=== PATIENT | female | born 1960 | race Caucasian/White ===

== ENCOUNTER 2024-07-09 15:40 | Outpatient (CLI) | payer MEDICAID ==
[~2024-07-09] VITALS: Ht 167.6 cm; Wt 69.4 kg
[2024-07-09] MEDS: albuterol 2.5 MG/3 ML nebule NEB ONE (16:25)
[2024-07-09 16:26] VITALS: PULSE 72; RESP 16; O2SAT 98
[2024-07-09 16:38] VITALS: PULSE 74; RESP 16
== END 2024-07-09 23:59 | disposition home or self-care (01) ==
LOC: RT 15:40
PROVIDERS: ATTEND Family Medicine
DX: R94.2 Abnormal results of pulmonary function studies (principal); J44.9 Chronic obstructive pulmonary disease, unspecified
CPT/HCPCS: 94060; 94729; 94760

== ENCOUNTER 2024-11-13 14:14 | Outpatient (CLI) | payer MEDICARE, MEDICAID ==
--- NOTE | 2024-11-13 17:28 | RADIOLOGY REPORT ---
PROCEDURE: MR MRI C SPINE INDICATION: CERVICALGIA EXAM DATE: 11/13/2024 02:13 PM COMPARISON: None TECHNIQUE: MRI cervical spine without intravenous contrast. FINDINGS: The cervical alignment is intact. There are degenerative endplate changes with anterior osteophytes mid to lower cervical levels. The visualized posterior fossa and craniocervical junction are intact. The intrinsic cervical cord signal appears intact. There is no prevertebral soft tissue swelling. The visualized paraspinal soft tissues are otherwise unremarkable. The following axial levels are detailed below: C2-C3: Mild posterior disc bulge. No significant central canal or neural foraminal stenosis. C3-C4: Mild posterior disc osteophyte complex complicated by facet arthropathy associated with mild to moderate left neural foraminal stenosis. Central canal measures 8 mm. C4-C5: Moderate posterior disc osteophyte complex complicated by facet arthropathy associated with moderate to severe bilateral neural foraminal stenosis. Central canal measures 7 mm. C5-C6: Moderate posterior disc osteophyte complex complicated by facet arthropathy associated with moderate to severe right neural foraminal stenosis. Central canal measures 9 mm. C6-C7: Mild posterior disc osteophyte complex complicated by facet arthropathy associated with mild to moderate bilateral neural foraminal stenosis. Central canal measures 8 mm. C7-T1: Unremarkable. IMPRESSION: 1. Multilevel degenerative disease. Severe central canal stenosis C4-5. Moderate central canal sten osis C3-4 C6-7. Mild central canal stenosis C5-6. Neural foraminal stenosis as above. 2. No definite abnormal cord signal identified. HS:Y
== END 2024-11-13 23:59 | disposition home or self-care (01) ==
LOC: MRI02 14:14
PROVIDERS: ATTEND Pediatrics Sports Medicine
DX: M47.22 Other spondylosis with radiculopathy, cervical region (principal); M50.11 Cervical disc disorder with radiculopathy, high cervical region; M25.511 Pain in right shoulder; M48.02 Spinal stenosis, cervical region; M75.41 Impingement syndrome of right shoulder; M54.2 Cervicalgia
CPT/HCPCS: 72141